=== PATIENT | female | born 1975 | race Caucasian/White ===

== ENCOUNTER → 2022-02-25 | Outpatient (CLI) | payer OTHER, BC ==
[~2022-02-25] VITALS: Ht 172.7 cm; Wt 122.7 kg
[~2022-02-25] MED LIST: LIDOCAINE 1% INJ 20 ML VIAL INJ ONE; LIDOCAINE 1% INJ 50 ML (XYLOCAINE) VIAL IJ ONE; LIDOCAINE 1% INJ 50 ML (XYLOCAINE) VIAL ONE
--- NOTE | 2022-02-25 10:33 | Diagnostic Imaging Report ---
INDICATION: Right breast density. Patient presents for right breast stereotactic biopsy. DETAILS OF THE PROCEDURE: The patient was brought to the mammographic suite and placed anterior in a sitting upright position. The right breast was positioned lateral medial. The nodular density in the posterior aspect of the right breast was stereotactically targeted. The lateral right breast was then prepped and draped in the usual sterile fashion. A small amount of 1% lidocaine was utilized for local anesthesia. An 8 gauge vacuum-assisted needle was advanced from a lateral medial approach and placed per stereotactic coordinates. A total of 4 core biopsies was obtained with the 8 gauge vacuum-assisted device. A marker clip was then deployed. The needle was removed and hemostasis was obtained. 2D CCA and LM mammography was performed demonstrating a marker clip in the upper outer posterior right breast. The patient tolerated the procedure well and left the Department in stable condition. All images were viewed on a dedicated workstation. IMPRESSION: Successful stereotactic biopsy of the nodular density in the upper posterior right breast utilizing a vacuum-assisted device. Pathology results are currently pending. Dictated by: Dictated on workstation # [id number]
== END ==
LOC: RAD 01-23 10:09
PROVIDERS: ATTEND Nurse Practitioner Women's Health
DX: N63.0 Unspecified lump in unspecified breast (principal)
CPT/HCPCS: 19081; A4648